=== PATIENT | female | born 1960 | race Caucasian/White ===

== ENCOUNTER → 2018-07-07 | Outpatient (CLI) | payer OTHER ==
[~2018-07-07] MED LIST: AMITRIPTYLINE H10 M3 PO; LEVOTHYROXIN0.075 MG PO; LIPITOR10 MG PO; NORCO 10-325 T1 EACH PO; PAXIL10 MG PO; SYNTHROID100 MC1 PO
--- NOTE | 2018-07-17 15:07 | PATH ---
[address] [address] PATHOLOGY RPT PROCEDURE Name: ALIZA MAGALLON Room: [facility] PATRICIO Mei#: [id number] Admission: 07/07/18 Date of : 60 Discharge: Report #: [id number] Path Case #: [id number] LCA Accession Number: [id number] . 01 Material submitted: . RIGHT BREAST . 01 Clinical history: . 0.80 x 0.75 x 1.04 cm 8:00 6 cm from nipple . 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 QTP/07/08/2018 . 02 Comment: Specimen type: Image guided core biopsies Tumor site: 8:00, 6 cm from nipple Tumor quantitation: 95% of submitted tissues Histologic type: Ductal adenocarcinoma with prominent mucinous component Histologic grade: I of III Tubules, nuclei and mitoses: 2, 2, 1 LVSI: Not identified Microcalcifications: Identified Markers: Breast tumor profile pending Block: A1 . 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 Breast tumor profile studies are pending and will be the subject of an addendum report. A1 and A2 reviewed with Dr. Tawana Ramos who agrees with the diagnosis. Radha Taylor ([facility] breast navigator) notified at approximately 1515 on 07/08/2018. ([facility] 07/08[facility]2018) . 02 Addendum: . Special studies report received from [facility], [address] [place] [address], [address], [place], [address], on case [id number], labeled with their number [id number], dated 07/11/2018. . Breast/Prognostic Marker Analysis . Specimen Site: Rt Breast (biopsy), Breast Cancer Specimen ID #: [id number] [place] [address] PATHOLOGY RPT PROCEDURE Name: ALIZA MAGALLON Room: [facility]#: [id number] Admission: 07/07/18 Date of : 60 Discharge: Report #: [id number] Path Case #: [id number] . ER (Estrogen Receptor) Present/Positive Percent: 95.00% Analysis: Manual Comments: Staining intensity: Strong . TX (Progesterone Receptor) Present/Positive Percent: 10.00% Analysis: Manual Comments: Staining intensity: Strong . HER2 Equivocal Score: 2+ Analysis: Manual . Ki-67 Low Proliferation Percent: 5.00% Analysis: Manual . . Time to Fixation (Cold Ischemic Time): 2 Minutes Duration of Fixation: Not Provided Type of Fixative: 10% Neutral Buffered Formalin . Comments: Additional studies: Reflex HER2 by FISH will be reported separately. . at [facility]. Isabel Vázquez M.D. Pathologist . . Methodology The HER2 Receptor protein expression is analyzed using the [place] HER2 rabbit monoclonal antibody (clone 4B5). This assay is used for diagnostic determination of the HER2 protein over-expression in paraffin embedded, formalin fixed breast cancer tissue on the [employer] Benchmark. The specimen is processed using a polymer detection system. The membrane staining of the tumor is determined either by manual score or image analysis. This antibody is intended for in vitro diagnostic use. The score is reported as per package insert; 0, 1+, 2+, and 3+. This test is used for clinical purposes. . A rabbit monoclonal antibody (clone SP1) that recognized [place] [address] PATHOLOGY RPT PROCEDURE Name: ALIZA MAGALLON Room: [facility] M Mei#: [id number] Admission: 07/07/18 Date of : 60 Discharge: Report #: [id number] Path Case #: [id number] Receptor is used to perform immunohistochemistry on routinely fixed (formalin) paraffin embedded tissue on the [place] Benchmark. The specimen is processed using a polymer detection system. The percentage of stained tumor nuclei is determined either manually or by image analysis. This test is intended for in vitro diagnostic use. This test is used for clinical purposes. . A rabbit monoclonal antibody (clone 1E2) that recognized the Progesterone Receptor is used to perform immunohistochemistry on routinely fixed (formalin) paraffin embedded tissue on the [place] Benchmark. The specimen is processed using a polymer detection system. The percentage of stained tumor nuclei is determined either manually or by image analysis. This test is intended for in vitro diagnostic use. This test is used for clinical purposes. . A rabbit monoclonal antibody (clone 30-9) that recognized Ki67 is used to perform immunohistochemistry on routinely fixed (formalin) paraffin embedded tissue on the [place] Benchmark. The specimen is processed using a polymer detection system. The percentage of stained tumor nuclei is determined either manually or by image analysis. This test is intended for in vitro diagnostic use. This test is used for clinical purposes. . Intended Use: This antibody is intended for in vitro diagnostic (IVD) use. HER2 (4B5) is a rabbit monoclonal antibody intended for the semi-quantitative detection of HER2 antigen in sections of formalin-fixed, paraffin embedded normal and neoplastic tissue. . This antibody is intended for in vitro diagnostic (IVD) use. Estrogen Receptor (ER) (SP1) is a rabbit monoclonal antibody (IgG) that is intended for the qualitative detection of estrogen receptor (ER) antigen in sections of formalin-fixed, paraffin-embedded tissue. ER is a rabbit monoclonal antibody that recognizes human estrogen receptor alpha. . This antibody is intended for in vitro diagnostic (IVD) use. Progesterone Receptor (TX) (1E2) is a rabbit monoclonal antibody (IgG) that is intended for the qualitative detection of progesterone receptor (TX) antigen in sections of formalin fixed, paraffin embedded tissue. TX is a rabbit monoclonal antibody that recognizes the A and B forms of the human progesterone receptor. . This antibody is intended for in vitro diagnostic (IVD) use. Ki-67 (30-9) is a rabbit monoclonal antibody (IgG) directed against C-terminal portion of Ki-67 antigen. Staining for Ki-67 can be used to aid in assessing the proliferative activity of normal and neoplastic tissue. Ki-67 is a nuclear protein expressed in proliferating cells. During the cell cycle, the Ki-67 antigen is present in the G1, S, G2 and M phase but is absent in the G0 (quiescent phase). [place] [address] PATHOLOGY RPT PROCEDURE Name: ALIZA MAGALLON Room: [facility]#: [id number] Admission: 07/07/18 Date of : 60 Discharge: Report #: [id number] Path Case #: [id number] . Disclaimer This Test was performed by [facility] at [address], [address]. . [facility] is a business unit of [employer] a wholly-owned subsidiary of [employer]. . This assay has not been validated on decalcified tissues. Results should be interpreted with caution if this specimen was decalcified given the likelihood of false negativity on decalcified specimens. . Any image(s) that accompany this report is/are a administrative representative image(s) only and should not be used to render a diagnosis. . This interpretation is contingent on the specimen and the clinical information received. . For any special tests/stains performed, known positive cells or tissues are tested with each marker and examined to ensure positivity. Positive and negative internal controls, if present, react appropriately. . This analysis is an adjunct to the evaluation of the referring physician and does not represent a final diagnosis. . The immunohistochemistry tests performed at [facility] [employer]. were validated on tissue fixed in 10% neutral buffered formalin. The performance characteristics of the tests performed on tissue processed in other fixatives is not known. . . HER2 testing at [facility] [employer] is performed in compliance with the 2013 updated ASCO/CAP Clinical Practice Guidelines and Recommendations for HER2 testing in Breast Cancer. If the result is EQUIVOCAL (2+), it must be confirmed by an alternative assay such as FISH or Dual ADOLFO. REF: Manfred LAI, et al. Recommendations for human epidermal growth factor receptor 2 testing in breast cancer: [place] Society of Clinical Oncology/College of [place] pathologists Clinical Practice Guideline Update. J Clin Oncol. 2013 Aug 14;31(31):4977-6952. . HER2 and ER/TX ASCO/CAP guidelines require fixation in neutral buffered formalin for a minimum of 6 and a maximum of 72 hours. Fixation times less than 6 hours may not adequately preserve cell proteins. Fixation times longer than 72 hours may cause excess cross-linking of proteins reducing the antigen available for staining. Either scenario can cause reduced staining; hence false negative results are possible and should be considered for these situations if the HER2 IHC score is less than 3+ or ER or TX is negative (no staining or <1% positive). [place] [address] PATHOLOGY RPT PROCEDURE Name: ALIZA MAGALLON Room: [facility] Mei#: [id number] Admission: 07/07/18 Date of : 60 Discharge: Report #: [id number] Path Case #: [id number] specimens fixed longer than 72 hours with HER2 IHC scores less than 3+ be confirmed by HER2 FISH or Dual ADOLFO. The time from biopsy/excision to fixation in formalin (cold ischemic time) must be less than 1 hour. Time to fixation (cold ischemic time) greater than 1 hour should be interpreted with caution. HER2 testing, mainly HER2 by FISH, is particularly vulnerable since excessive cold ischemic time results in preferential loss of HER2 probe signals that may lead to false negative results. . SCORE STAINING PATTERN IN TUMOR CELLS INTERPRETATION RESULTS 0 No staining observed or incomplete, faint membrane staining in less than or equal to 10% of tumor cells. Negative 1+ Incomplete, faint membrane staining in greater than 10% of tumor cells. Negative 2+ Incomplete and/or weak/moderate circumferential membrane staining in greater than 10% of the invasive tumor cells or complete, circumferential, intense alternative assay staining in less than or equal to 10% of invasive tumor cells. Equivocal* *Must be confirmed by alternative assay (IHC/FISH/Dual ADOLFO) 3+ Intense, complete membrane staining in greater than 10% of tumor cells. Positive . A complete copy of the report is on file. . Professional and Technical services performed by [facility]. at [address] [place] [address], [address], [place] [address]. . (AM 07/11/2018) . . This case was prepared and proofread by Dr. Andrea Roberson and electronically signed and released by Dr. Hung Geronimo. . (EVELIN:sven; 07/11/2018) . AZJ/07/11/2018 Addendum Electronically Signed by Warner Geronimo MD, Pathologist Addendum #2: Special studies report received from [facility], [address] [place] [address], [address], [place], [address], on case [id number], labeled with their number [id number], dated 07/16/2018. . Fluorescence in situ Hybridization (FISH) Report [address] [place] [address] PATHOLOGY RPT PROCEDURE Name: ALIZA MAGALLON Room: [facility]#: [id number] Admission: 07/07/18 Date of : 60 Discharge: Report #: [id number] Path Case #: [id number] HER2/SILVIA-17 Dual-Probe (Breast Cancer) . Result: Cannot be Determined: See Result Comments . Indication for Study: Breast cancer . Specimen Site/Type: Right Breast . Fixative: 10% Neutral Buffered Formalin . Time to Fixation: 2 minutes . Duration of Fixation: Not Provided . HER2 FISH ANALYSIS Number of tumor cells counted: 20+20 Number of observers: 2 Avg number of HER2 Signals/Nucleus: 4.2 Avg number of SILVIA-17 Signals/Nucleus: 3.5 Ratio of average HER2/SILVIA-17: 1.2 . Result Comments: By 2018 ASCO/CAP guidelines, the FISH result does not allow for definitive characterization of HER2 status. Within the guidelines, this case falls into ADOLFO group 4. . The HER2 IHC test was evaluated along with the H/E slide for this case with the HER2 IHC result being scored as 2+/Equivocal. Therefore, a second set of 20 tumor cells was evaluated by HER2 FISH. The HER2 FISH result (remains within the same category ADOLFO Group 4) based on the rescoring of the additional 20 cells. . "HER2 by immunohistochemistry and corresponding H/E performed at our laboratory were reviewed in conjunction with the HER2 FISH assay. . HER2 IHC RESULT IS: Equivocal HER2 FISH RESULT: CANNOT BE DETERMINED (ADOLFO Group 4 see 2018 ASCO/CAP guidelines scoring criteria below) FINAL HER2 RESULT IS Negative . It is uncertain whether patients with an average of equal to or greater than 4.0 and less than 6.0 HER2 signals per cell and a HER2/CEP17 ratio of less than 2.0 benefit from HER2-targeted therapy in the absence of protein overexpression (IHC 3+). If the specimen test result is close to the ADOLFO ratio threshold for positive, there is a high likelihood that repeat testing will result in different results by chance alone. Therefore, when IHC results are not 3+ positive, it is recommended that the sample be considered HER2 negative without additional testing on the same [place] [address] PATHOLOGY RPT PROCEDURE Name: ALIZA MAGALLON Michele [facility] [id number] Admission: 07/07/18 Date of : 60 Discharge: Report #: [id number] Path Case #: [id number] See report [id number] for further information. . Reviewed and electronically signed by Macho Wilder M.D. on 07/16/2018 at [facility] [employer]. Macho Wilder M.D. . Methodology: A FDA approved DAKO HER2 IQFISH pharmDX (HER2/SILVIA-17 DNA Probe Kit) was used for the assessment of HER2 gene amplification status. The FISH analysis was performed on areas of invasive tumor cells that were defined by a pathologist from a corresponding H/E slide. A minimum of twenty invasive tumor nuclei were analyzed by two technologists. For each nucleus, the number of HER2 signals and the number of centromere 17 (SILVIA-17) signals were recorded. Enumeration results are reported as a ratio of the total HER2 hybridization signals to SILVIA-17 hybridization signals. An average number of HER2 signals/nucleus and an average number of centromere 17 signals/nucleus were also recorded. If the HER2/SILVIA-17 ratio is greater than or equal to 2, the HER2 gene status is Amplified/Positive. If the HER2/SILVIA-17 ratio is <2, the HER2 gene status is Non-Amplified/Negative. If results are at or near the cut off (1.8-2.2), an additional 20 nuclei are counted and the ratio for 40 nuclei is recalculated. A HER2/SILVIA-17 ratio of 1.8-2.2 should be interpreted with caution. The ASCO/CAP guideline of 2013 (see below), includes additional criteria for determination of HER2 amplification or equivocal status based on the average HER2 signals/nucleus. . Specimen handling: Tissue samples should be preserved in 10% neutral buffered formalin for 18-24 hours per FDA approved DAKO HER2 IQFISH pharmDX. Extended fixation time might increase the incubation time required for Pepsin digestion. ASCO/CAP guidelines requires fixation for a minimum of 6 and a maximum of 72 hours. The time from biopsy/excision to fixation in formalin (cold ischemic time) must be less than an hour. Time to fixation (cold ischemic time) greater than 1 hour should be interpreted with caution. HER2 testing, mainly HER2 by FISH, is particularly vulnerable since excessive cold ischemic time results in preferential loss of HER2 probe signals that may lead to false negative results. . Intended Use: HER2 IQFISH pharmDX is indicated as an aid in the assessment of breast cancer patients for whom Herceptin? (Trastuzumab), PERJETATM (pertuzumab) or KADCYLATM (ado-trastuzumab emtansine) treatment is being considered. Results from HER2 IQFISH pharmDX are also used as an adjunct to the clinicopathologic information currently used for estimating prognosis in stage II, node-positive breast cancer patients. . Reference: Manfred AC, Tina ME, Roderick DG, et al: Recommendations for HER2 Testing in Breast Cancer: ASCP/CAP Clinical Practice Guideline Update. [place] [address] PATHOLOGY RPT PROCEDURE Name: ALIZA MAGALLON Room: [facility]#: [id number] Admission: 07/07/18 Date of : 60 Discharge: Report #: [id number] Path Case #: [id number] 2012Aug 14; 31):3587-5448. . DAKO kit: Histology FISH Accessory kit code K5799 . Disclaimer This Test was performed by [facility]. at [address] [place] [address]. [facility] is a business unit of [employer] [employer] a wholly-owned subsidiary of [employer]. . This assay has not been validated on decalcified tissues. Results should be interpreted with caution if this specimen was decalcified given the likelihood of false negativity on decalcified specimens. . Any image(s) that accompany this report is/are a administrative representative image(s) only and should not be used to render a diagnosis. . A copy of the complete report is on file. . Professional services performed by [employer]. at [facility] [address] [address]. Technical services performed by [employer]. at [facility] [address], [address] [address]. . (AMJ 07/17/2018) . AZJ/07/17/2018 Addendum Electronically Signed by Andrea Roberson MD, Pathologist . 02 Electronically signed: . Andrea Roberson MD, Pathologist NPI- [id number] . 01 Gross description: . The specimen is received in formalin, labeled "Aliza Haynes, right breast 8:00 6 cm FN" and consists of 4 needle cores of yellow tissue measuring between 1.2 cm and 1.0 cm in length and 0.2 cm each in diameter. They are entirely submitted in A1-A2. The specimen was collected at 9:15 AM on 07/07/18 and placed in formalin at 9:17 AM. The cold ischemic time is 2 minutes and total formalin fixation time is greater than 6 hours but less than 72 hours. (SDY; 07/07/2018) SYU/SYU . 02 Pathologist provided ICD-10: C50.911 . 02 [place] [address] PATHOLOGY RPT PROCEDURE Name: ALIZA MAGALLON Room: [facility]#: [id number] Admission: 07/07/18 Date of : 60 Discharge: Report #: [id number] Path Case #: [id number] Specimen Comment: A courtesy copy of this report has been sent to Specimen Comment: [phone], , , . Specimen Comment: Report sent to , and Specimen Comment: Report sent to Radha Taylor Performed at: 01 [facility] [address], [place], [place] [address] MD Trey Fajardo MD Phone: [phone] Performed at: 02 [facility] [place] [address], [place], [place] [id number] MD Andrea Roberson MD Phone: [phone]
== END | disposition home or self-care (01) ==
LOC: M.ULTRA 07:44
DX: C50.911 Malignant neoplasm of unspecified site of right female breast (principal); Z98.890 Other specified postprocedural states; Z88.0 Allergy status to penicillin; Z79.899 Other long term (current) drug therapy

== ENCOUNTER → 2018-07-22 | Outpatient (CLI) | payer OTHER | LOC: M.MRI 14:01 | DX: C80.1 Malignant (primary) neoplasm, unspecified (principal); N63.13 Unspecified lump in the right breast, lower outer quadrant; Z88.0 Allergy status to penicillin ==

== ENCOUNTER → 2018-08-15 | Day surgery (SDC) | payer OTHER ==
[2018-08-15 07:35] LABS: HEMATOCRIT 39.6 % (37.0-47.0); HEMOGLOBIN 13.1 gm/dL (12.0-15.0); MCHC 33.1 g/dL (28.0-37.0); MCV 93.7 fL (80.0-100.0); MPV 8.4 fl. (7.2-11.1); RBC 4.23 mil/uL (4.20-5.00); RDW-CV 13.4 % (10.5-14.5); WBC 5.6 thou/uL (4.0-11.0)
[2018-08-15 07:38] LABS: CALCIUM 9.2 mg/dL (8.5-10.1); CREATININE 0.8 mg/dL (0.6-1.3)
--- NOTE | 2018-08-15 12:11 | EKG ---
[place] [address] ELECTROCARDIOGRAM REPORT Name: HAMILTON MAGALLONTY Michele Room: [facility]#: [id number] Admission: 08/15/18 Attend Phys: Ronda Knox DO Discharge: Date of : 60 Report #: [id number] THIS REPORT FOR: //name// [facility] Test Date: 2018-08-15 Test Time: 07:42:01 Pat Name: BRANDY MAGALLON Department: Room: Gender: F Truck Driver: : 1960 Requested By: Ronda Knox Order Number: [id number] Reading MD: Talib Liu Measurements Intervals [place] Rate: 78 P: 57 MD: 162 QRS: 48 QRSD: 74 T: 58 QT: 375 QTc: 428 Interpretive Statements Sinus rhythm No previous ECG available for comparison Electronically Signed On 08-15-2018 12:10:55 CDT by Talib Liu [email or web address] <ELECTRONICALLY SIGNED> By: Talib Liu MD, [facility] 08/15/18 1210 0742 0742 Talib Liu MD, FACC /EPI
--- NOTE | 2018-08-16 07:32 | OP ---
[address] [address] OPERATIVE REPORT Name: BRANDY MAGALLON Room: [employer]#: [id number] Admission: 08/15/18 Attend Phys: Ronda Knox DO Discharge: Date of : 60 Report #: [id number] THIS REPORT FOR: //name// CC: Ronda Wellsie Mayank DATE OF SERVICE: 08/15/2018 PREOPERATIVE DIAGNOSIS: Right breast cancer. POSTOPERATIVE DIAGNOSIS: Right breast cancer. FINDINGS: Right breast wire localization with a small lump palpable around the wire. SURGEON: Ronda Knox DO COSURGEON: Luis Kimball, PGY-3. PROCEDURE PERFORMED: Right breast wire-guided lumpectomy and a right deep sentinel lymph node dissection. ANESTHESIA: LMA and local. ESTIMATED BLOOD LOSS: 15. DRAINS: None. SPECIMENS: Right lumpectomy and right deep sentinel lymph node. COMPLICATIONS: None. CONDITION: Stable. DISPOSITION: PACU to home. HISTORY OF PRESENT ILLNESS: The patient is a very pleasant 57-year-old female who presented to my office with a change in her mammogram. She underwent radiological-guided biopsy, which was positive for findings of right breast cancer. She was seen by Oncology and after careful consideration, decided to proceed with breast conservation therapy. Risks discussed included bleeding, infection, pain, scar formation, deformation of the breast, positive margins requiring further surgery and risks of general anesthesia. The patient understood these risks and elected to proceed. DESCRIPTION OF PROCEDURE: The patient initially presented to [facility] [place] [address] OPERATIVE REPORT Name: BRANDY MAGALLON Room: [facility] [employer] [facility]#: [id number] Admission: 08/15/18 Attend Phys: Ronda Knox DO Discharge: Date of : 60 Report #: [id number] taken to radiology where she underwent right breast wire localization and nuclear medicine injection. She then returned to [facility] where she underwent informed consent. She was taken to the operating room and laid supine on the operating room table. SCDs were placed to bilateral lower extremities. Antibiotics were given in the perioperative period. General LMA anesthesia was induced by anesthesia without difficulty. Right breast was prepped and draped in standard sterile fashion. Timeout was performed to verify patient and procedure. A 5 mL of Lymphazurin blue dye were injected in the periareolar area. Tip of the wire was then palpated and marked. Curvilinear incision was marked out in this area. A 10 mL of 0.5% Marcaine were injected in the planned incision. Incision was made with a 10 blade. Cautery was used for hemostasis. Then, using a combination of blunt and cautery dissection, lumpectomy specimen was created around the previously deployed wire. Margins were marked in the superior and lateral direction and the specimen was sent to Radiology where it underwent mammography. The radiologist did call us with findings of the mass, the wire and the clip. Hemostasis was assured in the cavity. Neoprobe was then brought on to the field. The area of the nipple was investigated and the highest uptake was approximately 9000. Neoprobe was then used to investigate the axilla and it did appear that the sentinel lymph node was going to be somewhat near our previous incision. Army-Pe Ell were gently placed within our previously created cavity and a tract was created up to the axilla using a combination of blunt and cautery dissection. Once the axillary fat pad itself was reached, we then continued to gently dissect down into the axilla using blunt dissection using both blue dye and the Neoprobe for guidance. Once fairly deep into the axilla, a large blue node was identified. Uptake in this area was approximately 400. The blue node was gently grasped using an Allis clamp and was dissected free from the surrounding tissue using a combination of blunt and cautery dissection. Once completely removed from the axilla, it was reinvestigated with the Neoprobe and the highest uptake was 2400. This was then handed off as a right sentinel lymph node. Neoprobe was returned into the field and there was no further significant uptake. The cavity and the tract to the sentinel lymph node were copiously irrigated with sterile water until clear. The tract to the sentinel lymph node was then filled with FloSeal. The wound was closed in a layered fashion using deep and superficial stitches of 3-0 Vicryl in inverted interrupted fashion. Skin wound was closed with running 4-0 Monocryl. A total of 30 mL of 0.5% Marcaine were used to anesthetize the wound. Wound was then cleansed and covered with Mastisol, Steri-Strips, 4 x 4's, and a Tegaderm. The patient was then allowed to awaken from anesthesia, was extubated and transported to the recovery room with no further difficulties. Counts were correct x 2 at the conclusion of the case. <ELECTRONICALLY SIGNED> By: Ronda Knox DO 08/16/18 0732 [id number] 1656Cdenita Knox DO /nt
--- NOTE | 2018-08-21 12:05 | PATH ---
[address] [address] PATHOLOGY RPT PROCEDURE Name: ALIZA MAGALLON Michele Room: [facility].#: [id number] Admission: 08/15/18 Date of : 60 Discharge: Report #: [id number] Path Case #: [id number] [facility] Accession Number: [id number] . 01 Material submitted: . PART A: RIGHT BREAST LUMPECTOMY PART B: RIGHT SENTINEL NODE #1 . 01 Clinical history: . Invasive ductal carcinoma right breast. Short-superior, long-lateral . 02 Diagnosis: A. Right breast, wire localization lumpectomy: - INFILTRATING DUCTAL ADENOCARCINOMA, LOW-GRADE, SPANNING 18 X 16 X 15 MM, IN ASSOCIATION WITH CHANGES OF PRIOR BIOPSY, WITH ALL SURGICAL MARGINS FREE OF INVOLVEMENT AND CLOSEST (LATERAL) LOCATED 3 MM AWAY. SEE COMMENT. . B. Right sentinel node #1: - Five benign lymph nodes (0/5). See comment. QTP/08/19/2018 . 02 Comment: Surgical Pathology Cancer Case Summary . Protocol posting date: October 2017 . INVASIVE CARCINOMA OF THE BREAST: . Specimen Identification . Procedure ___ Other (specify): Wire localization lumpectomy . Specimen Laterality ___ Right . + Tumor Site: Invasive Carcinoma + ___ Not specified . Tumor Size ___ Greatest dimension of largest invasive focus >1 mm: 18 mm x 16 mm x 15 mm . Histologic Type ___ Invasive carcinoma of no special type (ductal, not otherwise specified) [place] [address] PATHOLOGY RPT PROCEDURE Name: ALIZA MAGALLON Room: [facility].#: [id number] Admission: 08/15/18 Date of : 60 Discharge: Report #: [id number] Path Case #: [id number] Histologic Grade (Nuno Histologic Score) . Glandular (Acinar)/Tubular Differentiation ___ Score 2 (10% to 75% of tumor area forming glandular/tubular structures) . Nuclear Pleomorphism ___ Score 2 (cells larger than normal with open vesicular nuclei, visible nucleoli, and moderate variability in both size and shape) . Mitotic Rate ___ Score 1 (</=3 mitoses per mm2) . Overall Grade ___ Grade 1 (scores of 3, 4, or 5) . + Tumor Focality + ___ Single focus of invasive carcinoma . Ductal Carcinoma In Situ (DCIS) ___ Present + ___ Negative for extensive intraductal component (EIC) . + Size (Extent) of DCIS + Estimated size (extent) of DCIS: at least 0.7 mm . + Architectural Patterns (select all that apply) + ___ Solid . + Nuclear Grade + ___ Grade II (intermediate) . + Necrosis + ___ Not identified . + Lobular Carcinoma In Situ (LCIS) + ___ No LCIS in specimen . Margins . Invasive Carcinoma Margins ___ Uninvolved by invasive carcinoma Distance from closest margin: 3 mm Specify closest margin: Lateral . DCIS Margins ___ Uninvolved by DCIS Distance from closest margin: 9 mm Specify closest margin: [place] [address] PATHOLOGY RPT PROCEDURE Name: ALIZA MAGALLON Room: [facility]#: [id number] Admission: 08/15/18 Date of : 60 Discharge: Report #: [id number] Path Case #: [id number] . Regional Lymph Nodes ___ Uninvolved by tumor cells Number of Lymph Nodes Examined: 5 Number of Speed Nodes Examined: 5 . Lymphovascular invasion ___ Not present . Pathologic Stage Classification (pTNM, AJCC 8th Edition) . Primary Tumor (Invasive Carcinoma) (pT) ___ pT1c:Tumor >10 mm but =20 mm in greatest dimension . Regional Lymph Nodes (pN) . Modifier ___ (sn):Speed node(s) evaluated. If 6 or more nodes (sentinel or nonsentinel) are removed, this modifier should not be used. . Category (pN) ___ pN0:No regional lymph node metastasis identified or ITCs only# . + Additional Pathologic Findings + Specify: Incidental fibroadenoma with stromal calcifications. . + Ancillary Studies - Performed previously ([id number] A1): Estrogen receptor 95%, progesterone receptor 10%, HER2 2+ IHC - HER2 FISH - cannot be determined (ADOLFO group 4 per 2018 ASCO/CAP Guidelines), final HER2 result negative, Ki-67 5% . + Microcalcifications + ___ Present in non-neoplastic tissue + ___ Present in invasive carcinoma . + Clinical History + Previous right breast, 8:00, 6 cm from nipple, image guided core biopsy showing infiltrating ductal adenocarcinoma, low-grade, spanning at least 1 cm, with prominent mucinous component ([id number]). . Properly controlled keratin AE1/AE3 performed on B1 shows no evidence of metastatic cells in the five lymph nodes present. . Intermediate grade DCIS is seen in a single focus within the tumor in A8. Prominent mucinous features seen in the prior core biopsy were noted; however, in the lumpectomy specimen only a single minute focus of this feature is seen (A12). ([facility]EL[facility] 08/19/2018) [place] [address] PATHOLOGY RPT PROCEDURE Name: ALIZA MAGALLON Room: [facility] [place]#: [id number] Admission: 08/15/18 Date of : 60 Discharge: Report #: [id number] Path Case #: [id number] . 02 Electronically signed: . Andrea Roberson MD, Pathologist NPI- [id number] . 01 Gross description: . A. Received in formalin labeled "Aliza Magallon, right breast lumpectomy short-superior long-lateral" is an oriented breast lumpectomy specimen which weighs 30 g and measures 5.1 cm from anterior to posterior, 3.5 cm from superior to inferior, and 3.3 cm from medial to lateral. A guidewire extends from the anterior aspect of the specimen. The specimen is inked as follows: Superior-red, inferior-blue, anterior-green, posterior-black, lateral-orange, medial-yellow. The specimen is serially sectioned from anterior to posterior into 11 slices. Present within slices 2-5 is a urena-white stellate mass measuring 1.8 x 1.6 x 1.5 cm. A biopsy cavity is identified within the mass. The mass is located to the margins as follows: 0.4 cm to anterior, 2.0 cm the posterior, 0.4 cm to superior, 0.3 cm to lateral, 0.4 cm to medial, and 1.3 cm to inferior. The uninvolved breast tissue is yellow and lobulated with 5% dense white fibrous tissue. The specimen is submitted entirely as follows: A1-A2 slice 1, anterior margin, perpendicular sections A3-A4 slice 2 A5-A6 slice 3 A7-A8 slice 4 A9-A11 slice 5 A12-A13 slice 6 A14-A15 slice 7 A16-A17 slice 8 A18-A19 slice 9 A20-A21 slice 10 A22-A23 slice 11, posterior margin, perpendicular sections The specimen is removed from the patient at 1050 and placed in formalin at 1150 on August 15, 2018. The specimen is removed from formalin at 1650 on August 17, 2018. . B. Received in formalin labeled "Aliza Magallon, right sentinel node #1" is a 4.0 x 3.3 x 0.8 cm portion of yellow-urena lobulated fibroadipose tissue. The specimen is palpated to reveal 5 pink-urena lymph nodes ranging from 0.3-0.5 cm in greatest dimension. The lymph nodes are submitted without sectioning in cassette B1. ([facility]; 08/17/2018) SYC/SYC . 02 Pathologist provided ICD-10: C50.911 . 02 CPT . 826308, [id number], Y80111 Specimen Comment: A courtesy copy of this report has been sent to Specimen Comment: [phone]. [place] [address] PATHOLOGY RPT PROCEDURE Name: ALIZA MAGALLON Michele Room: [facility]#: [id number] Admission: 08/15/18 Date of : 60 Discharge: Report #: [id number] Path Case #: [id number] Specimen Comment: Report sent to Specimen Comment: A duplicate report has been generated due to demographic updates. Performed at: 01 [facility] [address], [place], [place] [id number] MD Trey Fajardo MD Phone: [phone] Performed at: 02 [facility] , [place] [id number] MD Andrea Roberson MD Phone: [phone]
== END | disposition home or self-care (01) ==
LOC: M.SUR 06:40
PROVIDERS: Surgery
DX: C50.911 Malignant neoplasm of unspecified site of right female breast (principal); E03.9 Hypothyroidism, unspecified; E78.5 Hyperlipidemia, unspecified; F32.9 Major depressive disorder, single episode, unspecified; Z98.890 Other specified postprocedural states; Z88.0 Allergy status to penicillin; Z79.899 Other long term (current) drug therapy; Z82.49 Family history of ischemic heart disease and other diseases of the circulatory system; Z82.3 Family history of stroke; Z80.0 Family history of malignant neoplasm of digestive organs; Z79.891 Long term (current) use of opiate analgesic